=== PATIENT | female | born 1960 | race Caucasian/White ===

== ENCOUNTER 2018-11-10 12:41 | Day surgery (SDC) | payer BC ==
[~2018-11-10] VITALS: Ht 160 cm; Wt 83.1 kg
[2018-11-10] MEDS ORDERED: Erythromycin500 M1 (13:06)
[2018-11-10] MEDS ORDERED: Lipitor20 MG (13:06)
[2018-11-10] MEDS ORDERED: Vitamin C100 M1 (13:07)
[2018-11-10] MEDS ORDERED: FISH OIL 1,0001 EAC2 (13:07)
[2018-11-10] MEDS ORDERED: Lysine500 MG (13:07)
[2018-11-10] MEDS ORDERED: VITAMIN D3400 UNIT (13:07)
== END 2018-11-10 15:08 | disposition home or self-care (01) ==
LOC: ORSCSDS 12:41
PROVIDERS: Internal Medicine Gastroenterology
PROC: 0DBP8ZX Excision of Rectum, Via Natural or Artificial Opening Endoscopic, Diagnostic (ICD-10-PCS; principal; 2018-11-10 14:00)
DX: Z12.11 Encounter for screening for malignant neoplasm of colon (principal); K62.1 Rectal polyp; K57.30 Diverticulosis of large intestine without perforation or abscess without bleeding; Z86.010 Personal history of colon polyps
CPT/HCPCS: 88305; J2704; J7120

== ENCOUNTER → 2022-02-19 | Outpatient (CLI) | payer BC ==
[~2022-02-19] MED LIST: ATOR40TA PO; ERGO400 PO; Erythromycin500 M1; Erythromycin500 M1 PO; FISH OIL 1,0001 EAC2; Lipitor20 MG; Lysine500 MG; SYNTHROID75 MCG PO; Vitamin C100 M1
[2022-02-19 09:01] LABS: BASOPHILS ABSOLUTE AUTO 0.03 K/mm3 (0.00-0.23); BASOPHILS PERCENT AUTO 0 % (0-2); EOSINOPHILS ABSOLUTE AUTO 0.06 K/mm3 (0.00-0.68); EOSINOPHILS PERCENT AUTO 1 % (0-6); Hemoglobin 15.5 g/dL (11.5-16.0); IMMATURE GRAN ABSOLUTE AUTO 0.02 K/mm3 (0.00-0.10); IMMATURE GRAN PERCENT AUTO 0 % (0-1); LYMPHOCYTES ABSOLUTE AUTO 1.36 K/mm3 (0.84-5.20); LYMPHOCYTES PERCENT AUTO 14 % (21-46); MONOCYTES ABSOLUTE AUTO 0.51 K/mm3 (0.16-1.47); MONOCYTES PERCENT AUTO 5 % (4-13); Mean Corpuscular HGB 30.6 pg (26.0-34.0); Mean Corpuscular HGB Conc 35.2 g/dL (31.5-36.5); Mean Corpuscular Volume 87 fL (80-100); Mean Platelet Volume 12.2 fL (9.1-12.4); NEUTROPHILS ABSOLUTE AUTO 7.63 K/mm3 (1.96-9.15); NEUTROPHILS PERCENT AUTO 79 % (41-73); Platelet Count 168 K/mm3 (150-400); RDW Coefficient Variation 11.9 % (11.7-14.2); RDW Standard Deviation 37.6 fL (35.1-46.3); Red Blood Cell Count 5.06 M/mm3 (3.80-5.20); White Blood Cell Count 9.61 K/mm3 (4.00-11.30)
[2022-02-19 09:17] LABS: Albumin, Blood 4.3 g/dL (3.4-5.0); Albumin/Globulin Ratio 1.1 (0.8-1.8); Bilirubin, Total 1.2 mg/dL (0.1-1.0); Bun/Creatinine Ratio 15.3 (12.0-20.0); Calcium, Blood 9.1 mg/dL (8.5-10.1); Creatinine, Blood 0.72 mg/dL (0.40-1.00); Globulin, Blood 3.9 g/dL (2.2-4.0); Potassium, Blood 3.9 mmol/L (3.5-5.5); Total Protein, Blood 8.2 g/dL (6.4-8.2)
== END | disposition home or self-care (01) ==
LOC: LAB SHORT 08:56 → LAB 08:56
PROVIDERS: Physician Assistant Medical
DX: R10.13 Epigastric pain (principal)
CPT/HCPCS: 80053; 83690; 85025

== ENCOUNTER 2022-02-21 18:26 | Inpatient (IN) | payer BC ==
[~2022-02-21] VITALS: Ht 162.6 cm; Wt 83.3 kg
[~2022-02-21 18:26] MED LIST changes: -ATOR40TA PO; -Erythromycin500 M1 PO; -SYNTHROID75 MCG PO
[2022-02-21 19:51] LABS: Source, Urine Clean Catch
[2022-02-21 19:54] LABS: Appearance, Urine Hazy (Clear); Bilirubin, Urine Neg (Neg); Blood, Urine 3+ (Neg); Color, Urine Amber (P-Yellow); Glucose Qualitative, Urine Neg (Neg); Ketones, Urine 4+ (Neg); Leukocyte Esterase, Urine 3+ (Neg); Nitrite, Urine Pos (Neg); Protein, Urine 2+ (Neg); Urobilinogen, Urine 2+ (Normal)
[2022-02-21 20:05] LABS: White Blood Cells, Urine 25-50 /hpf (0-5)
[2022-02-21 20:06] LABS: Bacteria Many /hpf; Squamous Epithelial Cells Few /hpf (Few)
[2022-02-21] MEDS ORDERED: SYNTHROID75 MCG PO (22:52)
[2022-02-21] MEDS ORDERED: Erythromycin500 M1 PO (22:53)
[2022-02-21] MEDS ORDERED: ATOR40TA PO (22:54)
[2022-02-22 01:42] LABS: BASOPHILS ABSOLUTE AUTO 0.03 K/mm3 (0.00-0.23); BASOPHILS PERCENT AUTO 0 % (0-2); EOSINOPHILS ABSOLUTE AUTO 0.04 K/mm3 (0.00-0.68); EOSINOPHILS PERCENT AUTO 0 % (0-6); Hematocrit 38.6 % (33.0-51.0); Hemoglobin 12.9 g/dL (11.5-16.0); IMMATURE GRAN ABSOLUTE AUTO 0.11 K/mm3 (0.00-0.10); IMMATURE GRAN PERCENT AUTO 1 % (0-1); LYMPHOCYTES ABSOLUTE AUTO 1.33 K/mm3 (0.84-5.20); LYMPHOCYTES PERCENT AUTO 10 % (21-46); MONOCYTES ABSOLUTE AUTO 1.17 K/mm3 (0.16-1.47); MONOCYTES PERCENT AUTO 9 % (4-13); Mean Corpuscular HGB 30.6 pg (26.0-34.0); Mean Corpuscular HGB Conc 33.4 g/dL (31.5-36.5); Mean Corpuscular Volume 92 fL (80-100); NEUTROPHILS ABSOLUTE AUTO 10.55 K/mm3 (1.96-9.15); NEUTROPHILS PERCENT AUTO 80 % (41-73); Platelet Count 122 K/mm3 (150-400); RDW Coefficient Variation 11.9 % (11.7-14.2); RDW Standard Deviation 40.2 fL (35.1-46.3); Red Blood Cell Count 4.22 M/mm3 (3.80-5.20); White Blood Cell Count 13.23 K/mm3 (4.00-11.30)
[2022-02-22 02:05] LABS: CHOL/HDL RATIO 3.3; Cholesterol 169 mg/dL (50-200); HDL Cholesterol 51 mg/dL (>39); Low Density Lipoprotein Chol 103 mg/dL (0-110); Triglycerides 77 mg/dL (30-160); Very Low Density Lipoprot Chol 15 mg/dL (6-32)
[2022-02-22 03:05] LABS: Albumin, Blood 3.1 g/dL (3.4-5.0); Albumin/Globulin Ratio 0.7 (0.8-1.8); Bilirubin, Total 2.1 mg/dL (0.1-1.0); Bun/Creatinine Ratio 23.9 (12.0-20.0); Calcium, Blood 8.6 mg/dL (8.5-10.1); Creatinine, Blood 0.55 mg/dL (0.40-1.00); Globulin, Blood 4.4 g/dL (2.2-4.0); Potassium, Blood 3.9 mmol/L (3.5-5.5); Total Protein, Blood 7.5 g/dL (6.4-8.2)
--- NOTE | 2022-02-22 17:09 | NUR ---
SUMMARY PT ADMITTED FROM THE ER TODAY FOR PANCREATITIS, PT RESTING QUIETLY IN BED, WAKES EASILY, IS ALERT AND ORIENTED AND INDEPENDENT IN THE ROOM, UP TO THE BATHROOM INDEP, PT MED PER EMAR FOR PAIN AND NAUSEA, VSS, WILL CONT TO MONITOR
--- NOTE | 2022-02-23 04:18 | NUR ---
SHIFT SUMMARY: PT IS ALERT AND ORIENTED. PT IS CALM AND COOPERATIVE WITH CARE. PT CALLS APPROPRIATELY. PT IS INDEPENDENT IN THE ROOM. PT REPORTS ABD PAIN AND NAUSEA T/O THE NIGHT, MEDICATING PER EMAR. PT DENIES VOMITING AND SOB. IV IN LAC LEAKING AT START OF SHIFT, REMOVED AND NEW 20G STARTED IN RFA. PT SLEPT INTERMITTENTLY THROUGHOUT THE NIGHT. NO SIGNIFICANT CHANGES OR COMPLICATIONS. WILL CONTINUE TO MONITOR.
[2022-02-23 05:21] LABS: BASOPHILS ABSOLUTE AUTO 0.02 K/mm3 (0.00-0.23); BASOPHILS PERCENT AUTO 0 % (0-2); EOSINOPHILS ABSOLUTE AUTO 0.12 K/mm3 (0.00-0.68); EOSINOPHILS PERCENT AUTO 1 % (0-6); Hematocrit 35.7 % (33.0-51.0); IMMATURE GRAN ABSOLUTE AUTO 0.03 K/mm3 (0.00-0.10); IMMATURE GRAN PERCENT AUTO 0 % (0-1); LYMPHOCYTES ABSOLUTE AUTO 1.31 K/mm3 (0.84-5.20); LYMPHOCYTES PERCENT AUTO 13 % (21-46); MONOCYTES ABSOLUTE AUTO 0.95 K/mm3 (0.16-1.47); MONOCYTES PERCENT AUTO 9 % (4-13); Mean Corpuscular HGB 30.4 pg (26.0-34.0); Mean Corpuscular HGB Conc 33.6 g/dL (31.5-36.5); Mean Corpuscular Volume 90 fL (80-100); Mean Platelet Volume 12.6 fL (9.1-12.4); NEUTROPHILS ABSOLUTE AUTO 7.69 K/mm3 (1.96-9.15); NEUTROPHILS PERCENT AUTO 76 % (41-73); Platelet Count 150 K/mm3 (150-400); RDW Coefficient Variation 11.9 % (11.7-14.2); RDW Standard Deviation 39.4 fL (35.1-46.3); Red Blood Cell Count 3.95 M/mm3 (3.80-5.20); White Blood Cell Count 10.12 K/mm3 (4.00-11.30)
[2022-02-23 06:06] LABS: Albumin, Blood 2.8 g/dL (3.4-5.0); Albumin/Globulin Ratio 0.7 (0.8-1.8); Bilirubin, Total 1.8 mg/dL (0.1-1.0); Bun/Creatinine Ratio 20.8 (12.0-20.0); Calcium, Blood 8.5 mg/dL (8.5-10.1); Creatinine, Blood 0.53 mg/dL (0.40-1.00); Globulin, Blood 4.2 g/dL (2.2-4.0); Potassium, Blood 3.6 mmol/L (3.5-5.5)
--- NOTE | 2022-02-23 14:39 | NUR ---
DISCHARGE PATIENT TRANSPORTED VIA WHEELCHAIR TO PRIVATE VEHICLE. DISCHARGE INSTRUCTIONS EXPLAINED TO PATIENT. PATIENT STATED UNDERSTANDING. PACKET SENT WITH PATIENT. BELONGINGS SENT WITH PATIENT. IV REMOVED WITHOUT DIFFICULTY BY PAULA MIRANDA. PATIENT HAS AN APPOINTMENT WITH PCP ON 02/28. INSTRUCTED PATIENT TO KEEP THAT APPOINTMENT. NO NEW MEDICATIONS TO FAX.
== END 2022-02-23 14:28 | disposition home or self-care (01) | DRG 440 ==
LOC: ER 18:26 → ERHOLD 02-22 00:59 → MEDS 02-22 00:59
PROVIDERS: Family Medicine; Physician Assistant; ADMIT Internal Medicine
DX: K85.20 Alcohol induced acute pancreatitis without necrosis or infection (principal); E78.5 Hyperlipidemia, unspecified; E03.9 Hypothyroidism, unspecified; E55.9 Vitamin D deficiency, unspecified; F10.10 Alcohol abuse, uncomplicated; Z23 Encounter for immunization; Z98.890 Other specified postprocedural states; Z90.710 Acquired absence of both cervix and uterus; Z79.899 Other long term (current) drug therapy; Z79.02 Long term (current) use of antithrombotics/antiplatelets; Z79.2 Long term (current) use of antibiotics
CPT/HCPCS: 36415; 74177; 80053; 80061; 81001; 85025; 87086; 90686; 96372-59; 96374; 96375; 96376; 99285-25; A9270; G0008; J0696; J1170; J1650; J2405; J2543; J3010; J7030; Q9967

== ENCOUNTER → 2022-02-21 | Outpatient (CLI) | payer BC ==
[2022-02-21 17:41] LABS: BASOPHILS ABSOLUTE AUTO 0.04 K/mm3 (0.00-0.23); BASOPHILS PERCENT AUTO 0 % (0-2); EOSINOPHILS ABSOLUTE AUTO 0.03 K/mm3 (0.00-0.68); EOSINOPHILS PERCENT AUTO 0 % (0-6); Hematocrit 41.7 % (33.0-51.0); Hemoglobin 14.3 g/dL (11.5-16.0); IMMATURE GRAN ABSOLUTE AUTO 0.04 K/mm3 (0.00-0.10); IMMATURE GRAN PERCENT AUTO 0 % (0-1); LYMPHOCYTES ABSOLUTE AUTO 1.22 K/mm3 (0.84-5.20); LYMPHOCYTES PERCENT AUTO 9 % (21-46); MONOCYTES ABSOLUTE AUTO 1.07 K/mm3 (0.16-1.47); MONOCYTES PERCENT AUTO 7 % (4-13); Mean Corpuscular HGB Conc 34.3 g/dL (31.5-36.5); Mean Corpuscular Volume 90 fL (80-100); Mean Platelet Volume 11.7 fL (9.1-12.4); NEUTROPHILS ABSOLUTE AUTO 12.03 K/mm3 (1.96-9.15); NEUTROPHILS PERCENT AUTO 83 % (41-73); Platelet Count 155 K/mm3 (150-400); RDW Standard Deviation 39.1 fL (35.1-46.3); Red Blood Cell Count 4.62 M/mm3 (3.80-5.20); White Blood Cell Count 14.43 K/mm3 (4.00-11.30)
[2022-02-21 17:52] LABS: Albumin, Blood 3.7 g/dL (3.4-5.0); Albumin/Globulin Ratio 0.8 (0.8-1.8); Bilirubin, Total 3.5 mg/dL (0.1-1.0); Bun/Creatinine Ratio 19.7 (12.0-20.0); Calcium, Blood 9.1 mg/dL (8.5-10.1); Creatinine, Blood 0.71 mg/dL (0.40-1.00); Globulin, Blood 4.6 g/dL (2.2-4.0); Total Protein, Blood 8.3 g/dL (6.4-8.2)
[2022-02-21 18:14] LABS: Lactate Dehydrogenase (Ld),Bld 244 U/L (100-240)
== END | disposition home or self-care (01) ==
LOC: LAB SHORT 17:36 → LAB 17:36
PROVIDERS: Physician Assistant Medical
DX: K85.90 Acute pancreatitis without necrosis or infection, unspecified (principal)
CPT/HCPCS: 80053; 83615; 83690; 85025

== ENCOUNTER 2024-04-24 08:34 | Day surgery (SDC) | payer BC ==
[~2024-04-24] VITALS: Ht 160 cm; Wt 81.4 kg
[~2024-04-24 08:34] MED LIST changes: +ATOR40TA PO; +Erythromycin500 M1 PO; +SYNTHROID75 MCG PO
[2024-04-24] MEDS ORDERED: Diprolene 0.05%15 GM (09:02)
[2024-04-24] MEDS ORDERED: Metronidazole T45 GM (09:02)
[2024-04-24] MEDS ORDERED: Lactated Ringer's 1,000 ML IV ONE ×2 (09:37→09:55)
[2024-04-24] MEDS ORDERED: propofoL 50 ML IV ONE (09:55)
[2024-04-24 11:24] VITALS: BP 108/75
== END 2024-04-24 11:15 | disposition home or self-care (01) ==
LOC: ORSCSDS 08:34
PROVIDERS: Internal Medicine Gastroenterology
PROC: 0DJD8ZZ Inspection of Lower Intestinal Tract, Via Natural or Artificial Opening Endoscopic (ICD-10-PCS; principal; 2024-04-24 10:15)
DX: Z12.11 Encounter for screening for malignant neoplasm of colon (principal); Z86.0101 Personal history of adenomatous and serrated colon polyps; K57.30 Diverticulosis of large intestine without perforation or abscess without bleeding; Z79.899 Other long term (current) drug therapy
CPT/HCPCS: J2704; J7120